=== PATIENT | male | born 1945 | race Caucasian/White ===

== ENCOUNTER → 2017-06-19 | Outpatient (CLI) | payer MEDICARE, BC ==
--- NOTE | 2017-06-19 08:17 | US ---
EXAMINATION TYPE: US carotid duplex BILAT DATE OF EXAM: 06/19/2017 COMPARISON: NONE CLINICAL HISTORY: 72-year-old male I65.21 OCCLUSION AND STENOSIS OF RIGHT CAROTID ARTERY. No history of TIA or stroke, HTN controlled with meds TECHNIQUE: Carotid duplex ultrasound examination. Indirect Doppler criteria was utilized. 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 Plaque seen in bilateral bulbs extending into proxima l ICA. On the right, elevated velocities seen in right prox ICA, mid ICA, bulb and ECA. Elevated jimenez ocities seen in left prox CCA, mid CCA, distal CCA, and ECA. EXAM MEASUREMENTS: RIGHT: Peak Systolic Velocity (PSV) cm/sec ----- Right CCA: 84.3 ----- Right ICA: 210.5 ----- Right ECA: 146.3 ICA/CCA ratio: 2.5 RIGHT: End Diastole cm/sec ----- Right CCA: 20.6 ----- Right ICA: 29.3 ----- Right ECA: 10.7 LEFT: Peak Systolic Velocity (PSV) cm/sec ----- Left CCA: 143.1 ----- Left ICA: 102.1 ----- Left ECA: 124.2 ICA/CCA ratio: 0.7 LEFT: End Diastole cm/sec ----- Left CCA: 31.7 ----- Left ICA: 21.3 ----- Left ECA: 0.0 VERTEBRALS (direction of flow): Right Vertebral: Antegrade Left Vertebral: Antegrade Rhythm: Normal IMPRESSION: 1. Measurements suggest a moderate (50-69%) stenosis of the right ICA. 2. There may be a mild or moderate stenosis involving the left common carotid artery. Further CTA neck evaluation as clinically indicated. Criteria for Assigning % of Stenosis / Diameter reduction (Estimation based on the indirect measurements of the internal carotid artery velocities (ICA PSV). 1. Normal (no stenosis)=ICA PSV < 125 cm/s: ratio < 2.0: ICA EDV<40 cm/s. 2. Less than 50% stenosis=ICA PSV < 125 cm/s: ratio < 2.0: ICA EDV<40 cm/s. 3. 50 to 69% stenosis=ICA PSV of 125 to 230 cm/s: ration 2.0 ? 4.0: ICA EDV 40-100 cm/s. 4. Greater than 70% stenosis to near occlusion= ICA PSV > 230 cm/s: ratio > 4.0: ICA EDV > 100 cm/s. 5. Near occlusion= ICA PSV velocities may be low or undetectable: variable ratio and ICA EDV. 6. Total occlusion=unable to detect flow.
== END ==
LOC: RADUSWWP 06:50
PROVIDERS: ATTEND Family Medicine
DX: I65.21 Occlusion and stenosis of right carotid artery (principal)
CPT/HCPCS: 93880

== ENCOUNTER → 2017-09-04 | Outpatient (CLI) | payer MEDICARE, BC ==
[2017-09-04 15:23] LABS: HCT 38.3 % (39.0-53.0); HGB 12.8 gm/dL (13.0-17.5); MCH 31.5 pg (25.0-35.0); MCHC 33.5 g/dL (31.0-37.0); MCV 93.9 fL (80.0-100.0); Platelet Count 160 k/uL (150-450); RBC 4.08 m/uL (4.30-5.90); RDW 15.4 % (11.5-15.5); WBC 5.5 k/uL (3.8-10.6)
[2017-09-04 15:49] LABS: Potassium 5.4 mmol/L (3.5-5.1)
== END | disposition home or self-care (01) ==
LOC: LABPAT 14:43
PROVIDERS: ATTEND Internal Medicine Interventional Cardiology
DX: Z01.812 Encounter for preprocedural laboratory examination (principal); R07.9 Chest pain, unspecified
CPT/HCPCS: 36415; 80051; 82565; 84520; 85027

== ENCOUNTER → 2018-02-17 | Outpatient (CLI) | payer MEDICARE, BC ==
[2018-02-17 13:08] LABS: HCT 41.1 % (39.0-53.0); Hypochromasia Slight; MCH 30.6 pg (25.0-35.0); MCHC 31.7 g/dL (31.0-37.0); MCV 96.5 fL (80.0-100.0); Mean Platelet Volume 7.2; Platelet Count 190 k/uL (150-450); RBC 4.26 m/uL (4.30-5.90); RDW 15.4 % (11.5-15.5); WBC 5.7 k/uL (3.8-10.6)
[2018-02-17 13:09] LABS: Appearance,Urine Clear (Clear); Bilirubin,Urine Negative (Negative); Blood,Urine Negative (Negative); Color,Urine Light Yellow; Glucose,Urine (UA) Negative (Negative); Ketones,Urine Negative (Negative); Leukocyte Esterase,Urine Negative (Negative); Nitrite,Urine Negative (Negative); Protein,Urine Trace (Negative); Specific Gravity,Urine 1.005 (1.001-1.035); Urobilinogen,Urine <2.0 mg/dL (<2.0)
[2018-02-17 13:21] LABS: Albumin 4.1 g/dL (3.5-5.0); Calcium 9.4 mg/dL (8.4-10.2); Phosphorus 3.8 mg/dL (2.5-4.5); Potassium 5.5 mmol/L (3.5-5.1); Total Bilirubin 0.6 mg/dL (0.2-1.3); Total Protein 7.8 g/dL (6.3-8.2)
== END ==
LOC: LABWHC1 12:27
PROVIDERS: ATTEND Internal Medicine
DX: N39.0 Urinary tract infection, site not specified (principal); N18.9 Chronic kidney disease, unspecified; D63.1 Anemia in chronic kidney disease; E83.39 Other disorders of phosphorus metabolism
CPT/HCPCS: 36415; 80053; 81003; 84100; 85027

== ENCOUNTER → 2018-06-11 | Outpatient (CLI) | payer MEDICARE, BC ==
[2018-06-11 15:13] LABS: Basophils % (A) 0 %; Eosinophils # (A) 0.2 k/uL (0-0.7); Eosinophils % (A) 3 %; HGB 13.6 gm/dL (13.0-17.5); Lymphocytes # (A) 1.2 k/uL (1.0-4.8); Lymphocytes % (A) 17 %; MCH 29.6 pg (25.0-35.0); MCV 95.5 fL (80.0-100.0); Mean Platelet Volume 6.6; Monocytes # (A) 0.4 k/uL (0-1.0); Monocytes % (A) 6 %; Neutrophils # (A) 5.3 k/uL (1.3-7.7); Neutrophils % (A) 72 %; Platelet Count 191 k/uL (150-450); RDW 15.4 % (11.5-15.5); WBC 7.3 k/uL (3.8-10.6)
[2018-06-11 15:17] LABS: Appearance,Urine Clear (Clear); Bilirubin,Urine Negative (Negative); Blood,Urine Negative (Negative); Color,Urine Yellow; Glucose,Urine (UA) Negative (Negative); Ketones,Urine Negative (Negative); Leukocyte Esterase,Urine Negative (Negative); Nitrite,Urine Negative (Negative); PH, Urine 7.5 (5.0-8.0); Protein,Urine 1+ (Negative); RBC,Urine <1 /hpf (0-5); Specific Gravity,Urine 1.006 (1.001-1.035); Urobilinogen,Urine <2.0 mg/dL (<2.0)
[2018-06-11 15:27] LABS: Potassium 5.1 mmol/L (3.5-5.1)
== END | disposition home or self-care (01) ==
LOC: LABPAT 13:59
PROVIDERS: ATTEND Surgery
DX: Z01.812 Encounter for preprocedural laboratory examination (principal); I65.21 Occlusion and stenosis of right carotid artery
CPT/HCPCS: 36415; 80051; 81001; 82565; 84520; 85025

== ENCOUNTER 2018-06-16 07:13 | Inpatient (IN) | payer MEDICARE, BC ==
[2018-06-10 13:43] VITALS: BMI 24.1
[~2018-06-16 07:13] MED LIST: DEXAMETHASONE SOD PHOSPHATE 10 MG/ML 1 ML VIAL IV ONE; HYDROmorphone 0.5 MG/0.5 ML SYRINGE IVP PRN; LIDOCAINE 1% 20 ML VIAL (10MG/ML) FOR IV START INTRADERMA PRN; MIDAZOLAM (PF) 2 MG/2 ML VIAL IV PRN; NITROGLYCERIN-D5W PMX 50 MG in DEXTROSE/WATER 1 250ML.BAG IV SCH; ONDANSETRON 4 MG/2 ML VIAL IVP ONE; SCOPOLAMINE 1.5MG/72HR PATCH TRANSDERM ONE; ceFAZolin IN SWFI 2 GM/20 ML SYRINGE IVP ONE
[2018-06-16] MEDS: LACTATED RINGERS 1,000 ML IV SCH ×2 (07:49→13:45)
[2018-06-16] MEDS ORDERED: METOPROLOL TARTRATE 5 MG/5 ML VIAL IVP ONE (08:04)
[2018-06-16] MEDS ORDERED: PROPOFOL 10 MG/ML 20 ML VIAL IV ONE (09:14)
[2018-06-16] MEDS ORDERED: PROTAMINE SULFATE 10 MG/ML 5 ML VIAL IV ONE (09:14)
[2018-06-16] MEDS ORDERED: PHENYLEPHRINE-0.9% NACL SYG 1 MG/10 ML SYRINGE ONE (09:14)
[2018-06-16] MEDS ORDERED: HEPARIN SODIUM,PORCINE 5,000 UNIT/ML 1 ML VIAL ONE (09:14)
[2018-06-16] MEDS ORDERED: ePHEDrine SULFATE/0.9% NACL/PF 50 MG/5 ML SYRINGE IV ONE (09:14)
[2018-06-16] MEDS ORDERED: LIDOCAINE 1% INJ 10MG/ML (20 ML MDV) ONE (09:14)
[2018-06-16] MEDS ORDERED: SUCCINYLCHOLINE CHLORIDE 100 MG/5 ML SYR IV ONE (09:14)
[2018-06-16] MEDS ORDERED: MIDAZOLAM 2 MG/2 ML VIAL ONE (09:14)
[2018-06-16] MEDS ORDERED: fentaNYL (PF) 50 MCG/ML 2 ML AMP ONE (09:14)
[2018-06-16] MEDS ORDERED: THROMBIN (BOVINE) 5,000 UNIT VIAL MISCELLANE ONE ×2 (10:11)
[2018-06-16] MEDS ORDERED: LIDOCAINE 1% INJ 10MG/ML (20 ML MDV) IM ONE ×2 (10:11)
[2018-06-16] MEDS ORDERED: GELATIN SPONGE,ABSORB (LARGE) 1 EACH SPONGE MISCELLANE ONE (10:11)
[2018-06-16] MEDS ORDERED: LACTATED RINGERS 1,000 ML IV ONE (10:49)
[2018-06-16] MEDS ORDERED: ACETAMINOPHEN TAB 325 MG TAB PO PRN (11:45)
[2018-06-16] MEDS ORDERED: MORPHINE SULFATE 2 MG/ML SYRINGE IVP PRN (11:45)
[2018-06-16] MEDS ORDERED: BENZOCAINE/MENTHOL LOZENG 1 EACH LOZENGE MUCOUS MEM PRN (11:45)
[2018-06-16] MEDS ORDERED: TRIMETHOBENZAMIDE 100 MG/ML 2 ML VIAL IM PRN (11:45)
[2018-06-16] MEDS ORDERED: MAG HYDROX/AL HYDROX/SIMETH 30 ML CUP PO PRN (11:45)
[2018-06-16] MEDS ORDERED: HYDROcodone/APAP 5-325MG 1 EACH TAB PO PRN (11:45)
--- NOTE | 2018-06-16 12:04 | P.OP ---
Date of Procedure: 06/16/18 Preoperative Diagnosis: asymptomatic right internal carotid artery stenosis 80-99% Postoperative Diagnosis: Right internal carotid artery stenosis with hemorrhagic plaque Procedure(s) Performed: right carotid endarterectomy with patch angioplasty Implants: bovine pericardial patch Anesthesia: RONNIE Surgeon: Richar Brito Deodorizer Operator #1: Stevan Raymundo Estimated Blood Loss (ml): 30 IV fluids (ml): 900 Urine output (ml): 275 Pathology: other (carotid plaque) Condition: stable Disposition: PACU Indications for Procedure: 73 year old gentleman presents to the operative room for elective right carotid endarterectomy for severe carotid stenosis seen on MRA and doppler which was measured to be 80-99%. Operative Findings: dense hemorrhagic plaque with large posterior plaque. Description of Procedure: After written informed consent was obtained from the patient and all risks benefits and complications were discussed with the patient is brought to the operative suite and laid in a beachchair position. The area of the neck was prepped and draped in usual sterile fashion after appropriate anesthetic was performed per the anesthesiologist. Timeout was performed in normal fashion and antibiotics were administered prior to incision. An oblique incision was created just anterior to the sternocleidomastoid musculature and dissection was carried down to the carotid sheath. The carotid sheath was dissected free after suture ligation of the facial vein which was encountered. Proximal distal dissection of the internal carotid common carotid and external carotid artery were performed in a circumferential manner and controlled with vessel loops. The internal carotid artery was dissected up towards the hypoglossal nerve which was visualized and undamaged. Patient was administered 5000 units of heparin and followed with serial ACTs for appropriate heparinization. The vessels were then clamped and utilizing 11 blade and arteriotomy was created at the common carotid artery and extended into the internal carotid artery. Distal control was then released revealing minimal backbleeding and therefore a stump pressure was obtained which demonstrated systolic pressure of 40 therefore a Sundt shunt was placed in normal fashion. Endarterectomy was then performed with a [place]view elevator with good endpoint noted at the internal carotid artery. There was some area of question for flat and therefore a 7-0 Prolene suture was utilized to tack down the distal aspect. A bovine pericardial patch was then utilized and patch angioplasty was performed with 6- 0 Prolene suture in a running fashion. Prior to last sutures being placed the shunt was removed and the proximal distal control was clamped once again. Final sutures were placed and control was released to the external carotid artery first followed by the common carotid artery to allow for any debris to be placed into the external system. Internal carotid artery was also released. There was no active bleeding from the suture line. Hemostasis was assured with Gelfoam and thrombin. Patient was administered 20 of protamine for reversal. Incision was copiously irrigated with antibiotic solution. A TABBY drain was placed and secured with nylon suture. Once the incision was dry it was then closed in a multilayer fashion. Skin was cleansed and dressings were placed. Patient tied procedure well was moving all extremities by commands at the conclusion of the procedure.
[2018-06-16] MEDS: PHENYLEPHRINE 40 MG in SODIUM CHLORIDE 0.9% 250 ML IV SCH ×2 (12:25→12:48)
[2018-06-16 14:33] LABS: Calcium 8.8 mg/dL (8.4-10.2); Potassium 4.8 mmol/L (3.5-5.1)
[2018-06-16] MEDS ORDERED: SODIUM CHLORIDE 0.9% 500 ML 500 ML IV ONE (14:34)
--- NOTE | 2018-06-16 14:34 | P.CNPUL ---
History of Present Illness Consult date: 06/16/18 Requesting physician: Rcihar Brito Reason for consult: other Chief complaint: ICU management, carotid artery stenosis s/p right carotid endarterectemy History of present illness: This is 73-year-old white male patient of Dr. Lomeli with past medical history of COPD, GERD/reflux, hypertension, hyperlipidemia, patient is a former smoker, he quit smoking 15-20 years ago, smoked a pack a day for 40 years. He is not oxygen dependent at his baseline, patient does see Dr. SUZY Acosta for his history of COPD, and the patient is on Atrovent nebulized treatments at home, in addition to Pulmicort. Patient was found to have severe right carotid stenosis seen on the MRA and Doppler which was measured to be at 80-99%. This was done as part of routine yearly physical by Dr. Lomeli, patient denies any previous history of CVA/TIA, denies any neurologic symptoms. Patient was referred to vascular surgery, and on 06/16/2018 were seen this patient in the intensive care unit, status post elective right carotid endarterectomy. Patient is awake and alert, in no acute distress, difficulty breathing, no chest pain, his incisional pain is well controlled, his biggest discomfort is that of the Calloway catheter. Patient had a EBL of 30 mL, he did receive 900 mL of IV fluids intraoperatively, he is on a small dose of Thaddeus-Synephrine for hypotension, currently at 40 mics/min. Right neck incision is clean dry and intact, there is a TABBY drain with minimal serosanguineous output, trachea midline , no swelling, no hematoma. No neurological deficits. Maintenance IV fluids's lactated Ringer's at a rate of 80 ML per hour, the catheter is in place, patient is producing urine at 40 ML per hour. We are consulted for ICU management. Review of Systems All systems: negative Constitutional: Denies chills, Denies fever Eyes: denies blurred vision, denies pain Ears, nose, mouth and throat: Denies headache, Denies sore throat Cardiovascular: Denies chest pain, Denies shortness of breath Respiratory: Denies cough Gastrointestinal: Denies abdominal pain, Denies diarrhea, Denies nausea, Denies vomiting Musculoskeletal: Denies myalgias Integumentary: Denies pruritus, Denies rash Neurological: Denies numbness, Denies weakness Psychiatric: Denies anxiety, Denies depression Endocrine: Denies fatigue, Denies weight change Past Medical History Past Medical History: COPD, GERD/Reflux, Hyperlipidemia, Hypertension History of Any Multi-Drug Resistant Organisms: None Reported Past Surgical History: Back Surgery, Hernia Repair Additional Past Surgical History / Comment(s): hemorrhoidectomy, rylee cataracts Past Anesthesia/Blood Transfusion Reactions: No Reported Reaction Smoking Status: Former smoker - Past Family History Mother Family Medical History: No Reported History Medications and Allergies Home Medications Medication Instructions Recorded Confirmed Type Aspirin [Adult Low Dose Aspirin EC] 81 mg PO QAM 06/10/18 06/16/18 History Atorvastatin [Lipitor] 40 mg PO HS 06/10/18 06/16/18 History Budesonide 1 mg INHALATION RT-BID 06/10/18 06/16/18 History Chlorthalidone [Hygroton] 25 mg PO DAILY 06/10/18 06/16/18 History Ipratropium Nebulized [Atrovent 0.5 mg INHALATION RT-BID 06/10/18 06/16/18 History Nebulized 0.2 MG/ML] Metoprolol Tartrate [Lopressor] 25 mg PO QAM 06/10/18 06/16/18 History Omeprazole [PriLOSEC] 20 mg PO AC-BRKFST 06/10/18 06/16/18 History amLODIPine [Norvasc] 5 mg PO DAILY 06/10/18 06/16/18 History Allergies Allergy/AdvReac Type Severity Reaction Status Date / Time No Known Allergies Allergy Verified 06/16/18 13:16 Physical Exam Vitals: Vital Signs Temp Pulse Pulse Pulse Resp BP BP 06/16/18 14:00 59 L 16 118/63 06/16/18 13:50 60 15 06/16/18 13:40 60 22 118/63 06/16/18 13:30 98.5 F 52 L 20 121/60 06/16/18 12:50 52 L 16 06/16/18 12:35 66 16 06/16/18 12:20 83 16 06/16/18 12:06 98 F 83 12 06/16/18 08:50 60 16 135/65 06/16/18 08:20 61 16 06/16/18 07:47 97.9 F 72 16 180/79 BP BP BP Pulse Ox 06/16/18 14:00 99 06/16/18 13:50 99 06/16/18 13:40 97 06/16/18 13:30 97 06/16/18 12:50 108/56 109/40 95 06/16/18 12:35 82/46 73/42 98 06/16/18 12:20 107/54 100 06/16/18 12:06 105/42 90/51 06/16/18 08:50 100 06/16/18 08:20 100 06/16/18 07:47 164/77 98 Intake and Output 06/15/18 06/16/18 06/16/18 22:59 06:59 14:59 Intake Total 1680 Output Total 345 Balance 1335 Intake: IV 1680 Lactated Ringers 1,000 ml 80 @ 80 mls/hr IV .[id number] DAVINA Rx#:[id number] Intake, IV Titration 0 Amount Phenylephrine 40 mg In 0 Sodium Chloride 0.9% 250 ml @ Titrate IV .Q0M DAVINA Rx#:[id number] Output: Urine 315 Estimated Blood Loss 30 ABP, PAP, CO, CI - Last 8 Hours Arterial Blood Pressure 95/39 Arterial Blood Pressure 104/45 Arterial Blood Pressure 137/56 Arterial Blood Pressure 121/44 GENERAL EXAM: Alert, pleasant, 73-year-old white male, on 2 liters per nasal cannula pulse ox of 97% comfortable in no apparent distress. HEAD: Normocephalic/atraumatic. EYES: Normal reaction of pupils, equal size. Conjunctiva pink, sclera white. NOSE: Clear with pink turbinates. THROAT: No erythema or exudates. NECK: No masses, no JVD, no thyroid enlargement, no adenopathy. Right-sided neck incision is covered with surgical dressing, clean dry and intact, soft, there is a right upper chest TABBY drain patent, compress, with minimal amount of serosanguineous drainage, trachea midline, no hematoma CHEST: No chest wall deformity. Symmetrical expansion. LUNGS: Equal air entry with no crackles, wheeze, rhonchi or dullness. CVS: Regular rate and rhythm, normal S1 and S2, no gallops, no murmurs, no rubs ABDOMEN: Soft, nontender. No hepatosplenomegaly, normal bowel sounds, no guarding or rigidity. EXTREMITIES: No clubbing, no edema, no cyanosis, 2+ pulses and upper and lower extremities. MUSCULOSKELETAL: Muscle strength and tone normal. SPINE: No scoliosis or deformity SKIN: No rashes CENTRAL NERVOUS SYSTEM: Alert and oriented -3. No focal deficits, tone is normal in all 4 extremities. PSYCHIATRIC: Alert and oriented -3. Appropriate affect. Intact judgment and insight. Results - Laboratory Findings CBC and BMP: 06/16/18 07:45 - Diagnostic Findings Additional studies: Neck MRA results, carotid ultrasound results reviewed Assessment and Plan Plan: Assessment: #1. Severe right carotid stenosis status post elective right carotid endarterectomy, postop day 0 #2. Hypotension could be related to effects of anesthesia and hypovolemia requiring Thaddeus-Synephrine infusion #3. COPD, currently stable. He has underlying FEV1 is unknown, but patient is not oxygen dependent at his baseline #4. Hypertension #5. Hyperlipidemia #6. GERD/Reflux #7. History of hernia repair, hemorrhoidectomy, bilateral cataracts removal, back surgery Plan: Patient is awake and alert, no neurological deficits, hemodynamically she continues to require small dose of Thaddeus-Synephrine, we will give 500 mL fluid challenge with lactated Ringer's see if we can wean off the Thaddeus-Synephrine. Pain is under good control, in sinus mechanism, incision is clean dry and intact , soft. GI and DVT prophylaxis, he was restarted on nebulized Atrovent and Pulmicort. His COPD stable right now. Blood work in the morning, we'll continue to follow I performed a history & physical examination of the patient and discussed their management with my nurse practitioner, Doreen Anderson. I reviewed the nurse practitioner's note and agree with the documented findings and plan of care. Lung sounds are positive for clear breath sounds. The findings and the impression was discussed with the patient. I attest to the documentation by the nurse practitioner. Time with Patient: Greater than 30
[2018-06-16] MEDS: HEPARIN SODIUM,PORCINE 5,000 UNIT/ML 1 ML VIAL SQ SCH (17:38)
[2018-06-16] MEDS ORDERED: NOREPINEPHRINE 4 MG in SODIUM CHLORIDE 0.9% 250 ML IV SCH (19:00)
[2018-06-16] MEDS: IPRATROPIUM 0.5 MG/2.5 ML NEBU INHALATION SCH (20:15)
[2018-06-16] MEDS: BUDESONIDE 1 MG/2 ML NEBU INHALATION SCH (20:15)
[2018-06-16] MEDS ORDERED: ATORVASTATIN 40 MG TAB PO SCH (21:00)
--- NOTE | 2018-06-16 23:56 | CONS ---
CONSULTATION DATE OF SERVICE: 06/16/2018 REASON FOR CONSULTATION: Advice regarding COPD, GERD, hypertension and multiple other medical issues, requested by Dr. Brito. HISTORY OF PRESENT ILLNESS: This 73-year-old gentleman with a past medical history of COPD, GERD, hypertension, hyperlipidemia, being followed by Dr. Adams in the outpatient setting, underwent right carotid endarterectomy with patch angioplasty for right internal carotid stenosis of 80% to 99% by Dr. Brito. The patient is being closely monitored. The output is slightly less at this time. There is no history of any fever, rigor or chills. No history of headache, loss of consciousness, seizures. The patient is slightly short of breath, which is his baseline, according to him. PAST MEDICAL HISTORY: 1. History of COPD. 2. History of GERD. 3. Hypertension. 4. Hyperlipidemia. HOME MEDICATIONS: 1. Norvasc 5 mg p.o. daily. 2. Prilosec 20 mg with breakfast. 3. Lopressor 25 mg each morning. 4. Atrovent 0.5 q.i.d. 5. Hygroton 25 mg daily. 6. Pulmicort 1 mg b.i.d. 7. Lipitor 40 mg at bedtime. 8. Ecotrin 81 mg each morning. ALLERGIES: NONE. FAMILY HISTORY: No history of heart disease or strokes in the family. SOCIAL HISTORY: Occasional alcohol intake. Remote history of smoking. REVIEW OF SYSTEMS: ENT: As mentioned earlier. CARDIOVASCULAR SYSTEM: No angina, palpitations. RESPIRATORY SYSTEM: As mentioned earlier. GI: No nausea, vomiting. : No dysuria or retention. NERVOUS SYSTEM: No numbness, weakness. ALLERGY/IMMUNOLOGY: No asthma, hayfever. MUSCULOSKELETAL: As mentioned earlier. HEMATOLOGY/ONCOLOGY: No history of anemia. ENDOCRINE: No history of diabetes, hypothyroidism. CONSTITUTIONAL: As mentioned earlier. DERMATOLOGY: Negative. RHEUMATOLOGY: Negative. PSYCHIATRY: As mentioned earlier. PHYSICAL EXAMINATION: Patient alert and oriented x3. Pulse is 57, blood pressure 91/58, respiratory rate 20, temperature normal, pulse ox 99% on 3 L. HEENT: Conjunctivae normal. Oral mucosa moist. NECK: Status post carotid endarterectomy on the right. Jugular venous distention visible in the root of the neck. CARDIOVASCULAR SYSTEM: S1, S2 muffled. No S3. No S4. RESPIRATORY SYSTEM: Breath sounds diminished at the bases. A few scattered rhonchi and crackles. Expiratory wheezing also present. ABDOMEN: Soft, non-tender. No mass palpable. LEGS: No edema. No swelling. NERVOUS SYSTEM: Higher functions as mentioned earlier. Moves all 4 limbs. No focal motor or sensory deficit. LYMPHATICS: No lymph node palpable in neck, axillae or groin. SKIN: No ulcer, rash, bleeding. LABS: Sodium is 140, potassium 4.8, creatinine 1.53. The preoperative labs showed CBC within normal limits. Otherwise, the labs are noted. ASSESSMENT: 1. Status post right carotid endarterectomy for right internal carotid stenosis of 80% to 99%. 2. Increased creatinine with possible chronic kidney disease, stage III. 3. Chronic obstructive pulmonary disease. 4. Gastroesophageal reflux disease. 5. Hypertension. 6. Hyperlipidemia. 7. History of back surgery. 8. History of degenerative joint disease. 9. History of hemorrhoidectomy. 10.History of bilateral cataracts. 11.Remote history of nicotine dependence. RECOMMENDATIONS AND DISCUSSION: In this 73-year-old gentleman who presented with multiple medical issues, I would recommend to continue current medications, continue symptomatic treatment, monitor fluid/electrolyte balance closely. Continue the bronchodilators. Closely follow with Vascular Surgery. Further recommendations to follow. Repeat labs have been ordered. A copy of this dictation is being forwarded to Dr. Adams, who is the primary physician. MMTANNERL / CAROLN: [id number] /
[2018-06-17] MEDS: LACTATED RINGERS 1,000 ML IV SCH ×2 (00:15→06:39)
[2018-06-17] MEDS: HEPARIN SODIUM,PORCINE 5,000 UNIT/ML 1 ML VIAL SQ SCH ×2 (02:18→09:01)
[2018-06-17 05:28] LABS: Basophils % (A) 0 %; Eosinophils % (A) 0 %; HCT 32.8 % (39.0-53.0); Lymphocytes % (A) 17 %; MCH 30.6 pg (25.0-35.0); MCHC 32.1 g/dL (31.0-37.0); MCV 95.3 fL (80.0-100.0); Monocytes # (A) 0.4 k/uL (0-1.0); Monocytes % (A) 6 %; Neutrophils # (A) 4.4 k/uL (1.3-7.7); Neutrophils % (A) 75 %; Platelet Count 116 k/uL (150-450); RBC 3.44 m/uL (4.30-5.90); RDW 15.5 % (11.5-15.5); WBC 5.9 k/uL (3.8-10.6)
[2018-06-17 05:30] LABS: HGB 10.6 gm/dL (13.0-17.5)
[2018-06-17 05:35] LABS: Calcium 8.2 mg/dL (8.4-10.2); Magnesium 1.3 mg/dL (1.6-2.3); Phosphorus 4.2 mg/dL (2.5-4.5); Potassium 4.4 mmol/L (3.5-5.1)
[2018-06-17] MEDS ORDERED: Magnesium Replacement Protocol 1 EACH MISC MISCELLANE PRN (07:04)
[2018-06-17] MEDS ORDERED: PANTOPRAZOLE 40 MG TABLET PO SCH (07:30)
[2018-06-17] MEDS: IPRATROPIUM 0.5 MG/2.5 ML NEBU INHALATION SCH (08:03)
[2018-06-17] MEDS: BUDESONIDE 1 MG/2 ML NEBU INHALATION SCH (08:03)
[2018-06-17] MEDS ORDERED: METOPROLOL TARTRATE 25 MG TAB PO SCH (09:00)
[2018-06-17] MEDS ORDERED: amLODIPine 5 MG TAB PO SCH (09:00)
[2018-06-17] MEDS ORDERED: CHLORTHALIDONE 25 MG TAB PO SCH (09:00)
[2018-06-17] MEDS ORDERED: ASPIRIN 81 MG PO SCH (09:00)
[2018-06-17] MEDS: MAGNESIUM SULFATE-D5W PMX 1 GM in DEXTROSE/WATER 1 100ML.BAG IVPB SCH ×3 (09:01→12:00)
[2018-06-17 14:16] VITALS: PULSE 57
[2018-06-17 16:24] VITALS: BP 115/57; RESP 19; TEMP 98.1
--- NOTE | 2018-06-17 17:42 | P.PN ---
Subjective Progress Note Date: 06/17/18 On today's evaluation of 06/17/2018 I'm seeing this patient for a follow-up as the patient is postop day #1 following a carotid endarterectomy. Patient is doing well. No specific complaints. TABBY drain is showing no significant output. The incision is dry clean and intact. The patient and hemodynamically stable throughout the night and the patient did not require any pressors. He came in from the operating room on Thaddeus-Synephrine infusion which was subsequently weaned off and discontinued. No hoarseness. No difficulty in swallowing. No altered mentation. No focal neurological deficit. No other significant events. No nausea no vomiting. No abdominal pain. No other significant events overnight. Objective - Vital Signs Vital signs: Vital Signs Temp 98.1 F 06/17/18 16:00 Pulse 57 L 06/17/18 16:00 Resp 19 06/17/18 16:00 BP 115/57 06/17/18 16:00 Pulse Ox 99 06/17/18 16:00 Intake & Output 06/16/18 06/17/18 06/17/18 18:59 06:59 18:59 Intake Total 2840 2480 400 Output Total 475 382 785 Balance 2365 2098 -385 Weight 70.9 kg Intake: IV 2840 1880 400 Lactated Ringers 1,000 ml 1240 1880 100 @ 80 mls/hr IV .[id number] DAVINA Rx#:[id number] Magnesium Sulfate-D5w Pmx 300 1 gm In Dextrose/Water 1 100ml.bag @ 100 mls/hr IVPB Q1H DAVINA Rx#: [id number] Intake, IV Titration 0 Amount Phenylephrine 40 mg In 0 Sodium Chloride 0.9% 250 ml @ Titrate IV .Q0M DAVINA Rx#:[id number] Oral 600 Output: Drainage 0 Right Neck 0 Urine 445 382 785 Estimated Blood Loss 30 Other: Voiding Method Indwelling Catheter Indwelling Catheter Urinal ABP, PAP, CO, CI - Last Documented Arterial Blood Pressure 106/41 - Exam GENERAL EXAM: Awake and alert and there is no focal neurological deficits. HEAD: Normocephalic/atraumatic. EYES: Normal reaction of pupils, equal size. Conjunctiva pink, sclera white. NOSE: Clear with pink turbinates. THROAT: No erythema or exudates. NECK: No masses, no JVD, no thyroid enlargement, no adenopathy. Right-sided neck incision is covered with surgical dressing, clean dry and intact, soft, there is a right upper chest TABBY drain patent, compress, with minimal amount of serosanguineous drainage, trachea midline, no hematoma CHEST: No chest wall deformity. Symmetrical expansion. LUNGS: Equal air entry with no crackles, wheeze, rhonchi or dullness. CVS: Regular rate and rhythm, normal S1 and S2, no gallops, no murmurs, no rubs ABDOMEN: Soft, nontender. No hepatosplenomegaly, normal bowel sounds, no guarding or rigidity. EXTREMITIES: No clubbing, no edema, no cyanosis, 2+ pulses and upper and lower extremities. MUSCULOSKELETAL: Muscle strength and tone normal. SPINE: No scoliosis or deformity SKIN: No rashes CENTRAL NERVOUS SYSTEM: Alert and oriented -3. No focal deficits, tone is normal in all 4 extremities. PSYCHIATRIC: Alert and oriented -3. Appropriate affect. Intact judgment and insight. - Labs CBC & Chem 7: 06/17/18 04:45 06/17/18 04:45 Labs: Abnormal Lab Results - Last 24 Hours (Table) 06/17/18 06/17/18 Range/Units 04:45 04:45 RBC 3.44 L (4.30-5.90) m/uL Hgb 10.6 L D (13.0-17.5) gm/dL Hct 32.8 L (39.0-53.0) % Plt Count 116 L (150-450) k/uL Sodium 133 L (137-145) mmol/L BUN 26 H (9-20) mg/dL Creatinine 1.54 H (0.66-1.25) mg/dL Glucose 108 H (74-99) mg/dL Calcium 8.2 L (8.4-10.2) mg/dL Magnesium 1.3 L (1.6-2.3) mg/dL Assessment and Plan Plan: #1. Severe right carotid stenosis status post elective right carotid endarterectomy, postop day 1 #2. Hypotension could be related to effects of anesthesia and hypovolemia requiring Thaddeus-Synephrine infusion #3. COPD, currently stable. He has underlying FEV1 is unknown, but patient is not oxygen dependent at his baseline #4. Hypertension #5. Hyperlipidemia #6. GERD/Reflux #7. History of hernia repair, hemorrhoidectomy, bilateral cataracts removal, back surgery Plan The patient is hemodynamically stable. We'll remove the TABBY drain. The patient should be able to go home today on his routine outpatient medication. A final vascular clearance will be given by the vascular surgeon prior to him being discharged.
--- NOTE | 2018-06-18 18:56 | P.PN ---
Subjective Progress Note Date: 06/17/18 Progress note being dictated for Dr. Keller> Interval history: This a 73-year-old gentleman status post right carotid endarterectomy for right internal carotid stenosis, acute on chronic renal failure and multiple other medical issues. Status post Thaddeus-Synephrine, one 500ml fluid bolus.VSS. Denies lightheadedness dizziness or focal deficits. Denies chest pain, palpitations or increased shortness of breath. Good diet intake with no nausea vomiting or diarrhea. Denies abdominal pain. Sodium 133. Hemoglobin 10.6, creatinine 1.54. Magnesium 1.3, receiving magnesium supplement. Afebrile, normal WBC. Objective - Vital Signs Vital signs: Vital Signs Temp 98.1 F 06/17/18 16:00 Pulse 57 L 06/17/18 16:00 Resp 19 06/17/18 16:00 BP 115/57 06/17/18 16:00 Pulse Ox 99 06/17/18 16:00 Intake & Output 06/16/18 06/17/18 06/17/18 18:59 06:59 18:59 Intake Total 2840 2480 400 Output Total 475 382 785 Balance 2365 2098 -385 Weight 70.9 kg Intake: IV 2840 1880 400 Lactated Ringers 1,000 ml 1240 1880 100 @ 80 mls/hr IV .[id number] DAVINA Rx#:[id number] Magnesium Sulfate-D5w Pmx 300 1 gm In Dextrose/Water 1 100ml.bag @ 100 mls/hr IVPB Q1H DAVINA Rx#: [id number] Intake, IV Titration 0 Amount Phenylephrine 40 mg In 0 Sodium Chloride 0.9% 250 ml @ Titrate IV .Q0M DAVINA Rx#:[id number] Oral 600 Output: Drainage 0 Right Neck 0 Urine 445 382 785 Estimated Blood Loss 30 Other: Voiding Method Indwelling Catheter Indwelling Catheter Urinal ABP, PAP, CO, CI - Last Documented Arterial Blood Pressure 106/41 - Exam PHYSICAL EXAM: VITAL SIGNS: As above GENERAL: Sitting up in chair, no acute distress HEENT: Conjunctivae normal. eyes normal. oral mucosa moist NECK: Supple, no JVD ,right carotid dressing clean dry and intact, TABBY with minimal serosanguineous drainage. CARDIOVASCULAR: S1, S2, regular. No murmur RESPIRATION: Breath sounds diminished in the bases. No rhonchi or crackles. No bronchial breathing. ABDOMEN: Soft, nontender . No guarding. no masses palpable. Bowel sounds heard. LEGS: No edema. no swelling PSYCHIATRY: Alert and oriented -3, mood and affect normal. NERVOUS SYSTEM: Cranial N 2-12 grossly normal. Moves all 4 limbs. Diffuse weakness No focal deficits. Strength and sensation grossly intact. Skin: no rash - Labs CBC & Chem 7: 06/17/18 04:45 06/17/18 04:45 Labs: Abnormal Lab Results - Last 24 Hours (Table) 06/17/18 06/17/18 Range/Units 04:45 04:45 RBC 3.44 L (4.30-5.90) m/uL Hgb 10.6 L D (13.0-17.5) gm/dL Hct 32.8 L (39.0-53.0) % Plt Count 116 L (150-450) k/uL Sodium 133 L (137-145) mmol/L BUN 26 H (9-20) mg/dL Creatinine 1.54 H (0.66-1.25) mg/dL Glucose 108 H (74-99) mg/dL Calcium 8.2 L (8.4-10.2) mg/dL Magnesium 1.3 L (1.6-2.3) mg/dL Assessment and Plan Assessment: -Status post right carotid endarterectomy for right internal carotid stenosis of 80-99% -Hypotension status post Thaddeus-Synephrine -Increased creatinine with possible chronic kidney disease, stage III -COPD, stable -Gastroesophageal reflux disease -Hypomagnesemia Plan: Continue on current medication regime ,monitoring and symptomatic treatment. Discharge planning in progress today as per vascular surgery. Follow-up with PCP, Dr. Adams in 1 week. CBC, BMP, magnesium outpatient with PCP. Further recommendations to follow. The impression and plan of care has been dictated as directed. : I performed a history and examination of this patient, discussed the same with the dictator. I agree with the dictator's note ,documented as a scribe. Any additional findings or plans will be noted.
== END 2018-06-17 17:00 | disposition home or self-care (01) | DRG 39 ==
LOC: 2ORMAIN 07:13 → 2SICU 12:14
PROVIDERS: ADMIT Surgery; ATTEND Surgery
PROC: 03CM0ZZ Extirpation of Matter from Right External Carotid Artery, Open Approach (ICD-10-PCS; 2018-06-16)
PROC: 03UM0KZ Supplement Right External Carotid Artery with Nonautologous Tissue Substitute, Open Approach (ICD-10-PCS; 2018-06-16)
PROC: 03UK0KZ Supplement Right Internal Carotid Artery with Nonautologous Tissue Substitute, Open Approach (ICD-10-PCS; 2018-06-16)
PROC: 03CK0ZZ Extirpation of Matter from Right Internal Carotid Artery, Open Approach (ICD-10-PCS; principal; 2018-06-16 09:00)
DX: I65.21 Occlusion and stenosis of right carotid artery (principal); I12.9 Hypertensive chronic kidney disease with stage 1 through stage 4 chronic kidney disease, or unspecified chronic kidney disease; E78.5 Hyperlipidemia, unspecified; E83.42 Hypomagnesemia; J44.9 Chronic obstructive pulmonary disease, unspecified; K21.9 Gastro-esophageal reflux disease without esophagitis; N18.3 Chronic kidney disease, stage 3 (moderate); Z79.82 Long term (current) use of aspirin; Z79.899 Other long term (current) drug therapy; Z87.891 Personal history of nicotine dependence; M19.90 Unspecified osteoarthritis, unspecified site; Z98.42 Cataract extraction status, left eye; Z98.41 Cataract extraction status, right eye; E86.1 Hypovolemia; I95.9 Hypotension, unspecified
CPT/HCPCS: 80048; 83735; 84100; 84132; 85025; 86850; 86900; 86901; 88304; 88311; 94640

== ENCOUNTER 2020-06-15 23:35 | Emergency (ER) | payer MEDICARE, BC ==
[~2020-06-15 23:35] MED LIST changes: +CALCIUM CHLORIDE 100 MG/ML 10 ML SYRINGE ONE; -DEXAMETHASONE SOD PHOSPHATE 10 MG/ML 1 ML VIAL IV ONE; +EPINEPHrine 10 ML SYRINGE (0.1 MG/ML) ONE; -HYDROmorphone 0.5 MG/0.5 ML SYRINGE IVP PRN; -LIDOCAINE 1% 20 ML VIAL (10MG/ML) FOR IV START INTRADERMA PRN; -MIDAZOLAM (PF) 2 MG/2 ML VIAL IV PRN; -NITROGLYCERIN-D5W PMX 50 MG in DEXTROSE/WATER 1 250ML.BAG IV SCH; -ONDANSETRON 4 MG/2 ML VIAL IVP ONE; -SCOPOLAMINE 1.5MG/72HR PATCH TRANSDERM ONE; +SODIUM BICARB 8.4% 50 ML SYR (1 MEQ/ML) ONE; -ceFAZolin IN SWFI 2 GM/20 ML SYRINGE IVP ONE
[2020-06-15] MEDS ORDERED: SODIUM CHLORIDE 0.9% 1,000 ML IV ONE (23:42)
--- NOTE | 2020-06-15 23:45 | ED ---
CPR HPI - General Stated Complaint: CPR Time Seen by Provider: 06/15/20 23:42 Source: EMS Mode of arrival: EMS Limitations: altered mental status - History of Present Illness Initial Comments: This patient was brought by EMS after he reportedly collapsed at home. Not able to obtain history from patient who is unresponsive. EMS reports that they were called after family found the patient lying on the floor. He reportedly had gone to his bedroom 10 minutes prior to go to bed. EMS states that when they arrived they found what appear to be PE a. They started ACLS protocol. Complaint: found unresponsive -: minute(s) Place: home AED Applied by Bystander/Home Office Claims Examiner: Yes Shock Advised: No Downtime Before ACLS Arrival (mins): 12 Initial Findings in the Field: unresponsive ROSC in the Field: No Associated Injuries: No Treatments Prior to Arrival: intubation, chest compressions, epinephrine mgs # (5), sodium bicarbonate (1), calcium (1) - Related Data Home Medications Medication Instructions Recorded Confirmed Aspirin [Adult Low Dose Aspirin EC] 81 mg PO QAM 06/10/18 06/16/18 Atorvastatin [Lipitor] 40 mg PO HS 06/10/18 06/16/18 Budesonide 1 mg INHALATION RT-BID 06/10/18 06/16/18 Chlorthalidone [Hygroton] 25 mg PO DAILY 06/10/18 06/16/18 Ipratropium Nebulized [Atrovent 0.5 mg INHALATION RT-BID 06/10/18 06/16/18 Nebulized 0.2 MG/ML] Metoprolol Tartrate [Lopressor] 25 mg PO QAM 06/10/18 06/16/18 Omeprazole [PriLOSEC] 20 mg PO AC-BRKFST 06/10/18 06/16/18 amLODIPine [Norvasc] 5 mg PO DAILY 06/10/18 06/16/18 Allergies Allergy/AdvReac Type Severity Reaction Status Date / Time No Known Allergies Allergy Verified 06/19/20 11:15 Review of Systems ROS Statement: Those systems with pertinent positive or pertinent negative responses have been documented in the HPI. ROS Other: All systems not noted in ROS Statement are negative. Limitations: ROS unobtainable due to patients medical condition Past Medical History - Past Family History Mother Family Medical History: No Reported History General Exam Limitations: physical limitation (Unresponsive) General appearance: other (Unresponsive) Head exam: Present: atraumatic, normocephalic Eye exam: Present: other (Corneal drying). Absent: PERRL, EOMI, scleral icterus, conjunctival injection Pupils: Present: mydriatic ENT exam: Present: other (There is an endotracheal tube secured in the oropharynx, small amount of blood in the endotracheal tube) Neck exam: Present: other (There is jugular vein distention bilaterally). Absent: tenderness Respiratory exam: Present: rhonchi, other (There is no spontaneous inspiratory effort. Breath sounds with bagging reveal a few scattered rhonchi.) Cardiovascular Exam: Absent: normal heart sounds GI/Abdominal exam: Present: soft. Absent: mass Extremities exam: Present: normal inspection, pedal edema (There is some trace edema above the sock line bilaterally). Absent: normal capillary refill Back exam: Present: normal inspection Neurological exam: Present: other (Patient is unresponsive. Jasen Coma Scale 3.) Skin exam: Present: dry, intact, cyanosis, pallor (There is pallor to the lower portion of the body. Above the nipple line there is cyanosis.), other. Absent: normal color, rash Medical Decision Making - Medical Decision Making Patient is 75-year-old man brought from home where he was unresponsive. EMS arrived and found PE a and they did perform ACLS protocol. On arrival here, there is a detectable pulse and blood pressure. We were beginning studies when the patient did have loss of detectable pulse and went asystole on the traffic monitor specialist. ACLS protocol was reinstituted. Following additional medication there was a return of some cardiac activity however the ultrasound probe is placed and there is no detectable cardiac motion. There is no palpable blood pressure or pulse. The rhythm did deteriorate to asystole again. No neurologic signs of life. Patient is pronounced at 12:02 AM. Case is discussed with Dr. Lomeli, who would sign certificate. Case is discussed with the nuclear medical tech office and signs case #[id number], and they will release for disposition to the [facility]. I did discuss with the family members present. - Lab Data Lab Results 06/15/20 Range/Units 23:37 POC Glucose (mg/dL) 127 H (75-99) mg/dL POC Glu Jira Developer ID Carola Srinivasan Disposition Clinical Impression: Cardiac arrest Disposition: Is patient prescribed a controlled substance at d/c from ED?: No Referrals: None,Stated [Primary Care Provider] - 1-2 days Preliminary Cause of : cardiopulmonary arrest
[2020-06-19 08:06] LABS: Glucose,Whole Blood 127 mg/dL (75-99)
== END 2020-06-16 03:15 | disposition expired ==
LOC: EDBD → EC 23:35 → MERGE 23:35 → EC 06-16 03:15
DX: I46.9 Cardiac arrest, cause unspecified (principal); R40.2432 Glasgow coma scale score 3-8, at arrival to emergency department
CPT/HCPCS: 93005; 36415; 99285; J0171